=== PATIENT | male | born 1965 | race Caucasian/White ===

== ENCOUNTER 2016-09-27 17:52 | Emergency (ER) | payer OTHER ==
[~2016-09-27] VITALS: Ht 172.7 cm; Wt 72.6 kg
--- NOTE | ~2016-09-27 | CR63 ---
[facility] A Service of [facility] RADIOLOGY TEXT RESULTS PATIENT: CAMILLA MATOS LOCATION: CFTX : 69 UNIT #: [id number] AGE: [address]: Holley Rabago APRN SEX: M ORDER DR: [id number] [facility] [address] [place], [place] [address] [id number] E MR#: [id number] Acc #: [id number] NAME: CAMILLA MATOS : 1965 SEX: M STUDY DATE/TIME: 09/27/2016 19:17 UNIT: [facility] ROOM: STUDY DESCRIPTION: CR Chest 2 View Attending Physician: Holley Rabago A.P.R.N. Ordering Physician: Ed Bjorn Cruz M.D. Primary Care Physician: Gerson Kay M.D. MEDICAL IMAGING REPORT This report is preliminary unless electronic signature is present EXAM Chest x-ray, 09/27 at 19:17. INDICATIONS Patient fell today and has chest pain and shortness of air. History of COPD. Left side rib pain. FINDINGS PA and lateral views of the chest are compared with 07/30/2016. Cardiac and mediastinal contours are normal. Lungs are clear. There is no pneumothorax. No acute rib fracture is seen. IMPRESSION No active disease. Dictated by... Ramone Chinchilla Jr., M.D. THIS IS AN ELECTRONICALLY VERIFIED REPORT Ramone Chinchilla Jr., M.D. at 09/28/2016 4:12 PM FLORINDA/kain TD: 09/27/2016 23:54 JOB #: [id number] MEDICAL IMAGING REPORT Page 1 of 1 COPY
--- NOTE | ~2016-09-27 | CR181 ---
[facility] A Service of [facility] RADIOLOGY TEXT RESULTS PATIENT: CAMILLA MATOS LOCATION: CFTX : 69 UNIT #: [id number] AGE: [address]: Holley Rabago APRN SEX: M ORDER DR: [id number] [facility] [address] [place], [place] [address] [id number] E MR#: [id number] Acc #: [id number] NAME: CAMILLA MATOS : 1965 SEX: M STUDY DATE/TIME: 09/27/2016 19:21 UNIT: [facility] ROOM: STUDY DESCRIPTION: CR Lumbar Spine 2 or 3 Views Attending Physician: Holley Rabago A.P.R.N. Ordering Physician: Ed Doctor [id number] [facility] Primary Care Physician: Gerson Kay M.D. MEDICAL IMAGING REPORT This report is preliminary unless electronic signature is present EXAM Lumbar spine 09/27/1920 INDICATIONS Low back pain with lower extremity radiculopathy since a fall today. TECHNIQUE Three views of the lumbar spine were obtained. Comparison is made with reformatted CT images from 03/06/2016. FINDINGS No acute fracture or malalignment is seen. There is some degenerative endplate spurring at multiple levels. There is an old L2 compression fracture. There is facet arthropathy at L5-S1. IMPRESSION Degenerative disease with an old L2 compression fracture. No acute fracture or malalignment. Dictated by... Ramone Chinchilla Jr., M.D. THIS IS AN ELECTRONICALLY VERIFIED REPORT Ramone Chinchilla Jr., M.D. at 09/28/2016 4:12 PM FLORINDA/jerry TD: 09/28/2016 00:00 JOB #: [id number] MEDICAL IMAGING REPORT Page 1 of 1 COPY
[~2016-09-27 17:52] MED LIST: COMBIVENT MININEB INH; FLEXERIL10 MG PO; FLOMAX0.4 M1 PO; KEPPRA250 MG; KEPPRA500 MG PO; LORTAB 5/500 TA1 TA1 PO; NAPROSYN500 MG PO; NEURONTIN100 MG PO; ROBAXIN 750750 M1 PO; TUDORZA PRESS400 MCG IH; VENTOLIN5 MG/ML IN; VENTOLIN5 MG/ML INH; VOLTAREN75 MG PO
== END 2016-09-27 20:20 | disposition home or self-care (01) ==
LOC: CFTX 17:52 → CED 17:52 → CFTX 19:03
DX: S30.0XXA Contusion of lower back and pelvis, initial encounter (principal); S20.212A Contusion of left front wall of thorax, initial encounter; F17.210 Nicotine dependence, cigarettes, uncomplicated; X58.XXXA Exposure to other specified factors, initial encounter; Y92.89 Other specified places as the place of occurrence of the external cause
CPT/HCPCS: 71020; 72100; 99283